=== PATIENT | female | born 1955 | race Caucasian/White ===

== ENCOUNTER 2018-08-21 11:51 | Emergency (ER) | payer BC ==
--- NOTE | 2018-08-21 12:12 | ER Document Report ---
ED General <LOLITA BEARD - Last Filed: 08/21/18 14:37> - General Mode of Arrival: Ambulatory Information source: Patient TRAVEL OUTSIDE OF THE [place] IN LAST 30 DAYS: No <LAKESHIA POWELL - Last Filed: 08/21/18 16:35> - General Chief Complaint: Leg Pain Stated Complaint: LEFT LEG PAIN Time Seen by Provider: 08/21/18 12:03 Notes: Patient is a 62 year old female presenting to the emergency department complaining of left leg swelling and pain onset yesterday. Patient had a left total knee replacement on August 15, 2018 and states she was doing well after the surgery. She states she was able to walk and put weight on her knee until yesterday. She states yesterday she began to have increased swelling below the knee and it became very painful to walk and tender to the touch. She states she has some above the knee swelling but this has been the same since the surgery. She also reports the swelling to her knee decreasing one inch since the surgery. Dr. Figueroa at [facility] performed the patient's total knee replacement. Patient currently takes 2 baby aspirin daily. (LAKESHIA POWELL) - Related Data Allergies/Adverse Reactions: oxycodone Adverse Reaction (Verified 08/21/18 11:52) Past Medical History - General Information source: Patient - Social History Smoking Status: Never Smoker Cigarette use (# per day): No Chew tobacco use (# tins/day): No Smoking Education Provided: No Frequency of alcohol use: None Family History: Reviewed & Not Pertinent - Past Medical History Cardiac Medical History: Reports: Hx Hypercholesterolemia, Hx Hypertension Endocrine Medical History: Reports: Hx Diabetes Mellitus Type 2 <LAKESHIA POWELL - Last Filed: 08/21/18 16:35> Review of Systems - Review of Systems Constitutional: No symptoms reported EENT: No symptoms reported Cardiovascular: No symptoms reported Respiratory: No symptoms reported Gastrointestinal: No symptoms reported Genitourinary: No symptoms reported Female Genitourinary: No symptoms reported Musculoskeletal: See HPI, Leg swelling Skin: No symptoms reported Hematologic/Lymphatic: No symptoms reported Neurological/Psychological: No symptoms reported -: Yes All other systems reviewed and negative <LAKESHIA POWELL - Last Filed: 08/21/18 16:35> Physical Exam <LOLITA BEARD - Last Filed: 08/21/18 14:37> <LAKESHIA POWELL - Last Filed: 08/21/18 16:35> - Vital signs Vitals: Temp Pulse Resp BP Pulse Ox 98.3 F 95 24 H 112/45 L 98 08/21/18 11:56 08/21/18 11:56 08/21/18 11:56 08/21/18 11:56 08/21/18 11:56 - Notes Notes: GENERAL: Alert, interacts well. No acute distress. HEAD: Normocephalic, atraumatic. EYES: Pupils equal, round, and reactive to light. Extraocular movements intact. ENT: Oral mucosa moist, tongue midline. NECK: Full range of motion. Supple. Trachea midline. LUNGS: No respiratory distress. HEART: Regular rate and rhythm. No murmurs, gallops, or rubs. EXTREMITIES: Moves all 4 extremities spontaneously. Bandage over left knee, consistent with surgical history. Edema to the left lower extremity above and below the knee. Mid and upper calf tender to palpation, mild erythema but is not warm to touch, swollen. Mid calf firm. Popliteal fossa not firm, but tender. NEUROLOGICAL: Alert and oriented x3. Normal speech. PSYCH: Normal affect, normal mood. SKIN: Warm, dry, normal turgor. No rashes or lesions noted. (LAKESHIA POWELL) Course - Laboratory Result Diagrams: 08/21/18 12:39 08/21/18 12:39 <LOLITA BEARD - Last Filed: 08/21/18 14:37> - Laboratory Result Diagrams: 08/21/18 12:39 08/21/18 12:39 <LAKESHIA POWELL - Last Filed: 08/21/18 16:35> - Vital Signs Vital signs: Temp Pulse Resp BP Pulse Ox 98.5 F 91 15 122/56 L 99 08/21/18 14:53 08/21/18 14:53 08/21/18 14:53 08/21/18 14:53 08/21/18 14:53 - Laboratory Laboratory results interpreted by me: 08/21/18 08/21/18 12:39 12:39 Hct 35.6 L Glucose 127 H ALT 85 H Alkaline Phosphatase 146 H Discharge <LOLITA BEARD - Last Filed: 08/21/18 14:37> <LAKESHIA POWELL - Last Filed: 08/21/18 16:35> - Discharge Clinical Impression: Swelling of lower extremity Condition: Stable Disposition: HOME, SELF-CARE Additional Instructions: The venous Doppler study did not show evidence of blood clots today. Your white blood cell count was normal and did not suggest an infectious problem. The skin had a slight redness noted, but was not warm to touch. You should try to elevate the leg above the heart is much as possible. Follow-up with your primary care provider or your orthopedic surgeon in the next few days for recheck of the leg. RETURN TO THE EMERGENCY ROOM IF ANY NEW OR WORSENING SYMPTOMS. Referrals: MJ MONREAL FNP [Primary Care Provider] - Follow up in 3-5 days [employer] Attestation: 08/21/18 13:56 I personally performed the services described in the documentation, reviewed and edited the documentation which was dictated to the scribe in my presence, and it accurately records my words and actions. (LOLITA BEARD) Scribe Documentation - Scribe Written by Danuta:: Danuta Eric, 08/21/2018 12:23 acting as scribe for :: Trena <LAKESHIA POWELL - Last Filed: 08/21/18 16:35>
[2018-08-21 13:00] LABS: ABSOLUTE BASOPHILS # (AUTO) 0.1 10^3/uL (0.0-0.2); ABSOLUTE EOSINOPHILS # (AUTO) 0.1 10^3/uL (0.0-0.6); ABSOLUTE LYMPHOCYTES (AUTO) 1.7 10^3/uL (0.5-4.7); ABSOLUTE MONOCYTES (AUTO) 0.7 10^3/uL (0.1-1.4); ABSOLUTE NEUT (AUTO) 5.5 10^3/uL (1.7-8.2); BASOPHILS % (AUTO) 0.9 % (0-2); EOSINOPHILS % (AUTO) 1.8 % (0-6); HEMATOCRIT 35.6 % (36.0-47.0); HEMOGLOBIN 12.2 g/dL (12.0-15.5); LYMPHOCYTES % (AUTO) 20.9 % (13-45); MEAN CORPUSCULAR HEMOGLOBIN 31.3 pg (27.0-33.4); MEAN CORPUSCULAR HGB CONC 34.3 g/dL (32.0-36.0); MEAN CORPUSCULAR VOLUME 91 fl (80-97); PLATELET COUNT 399 10^3/uL (150-450); RED CELL DISTRIBUTION WIDTH 13.3 % (11.5-14.0); SEGMENTED NEUTROPHILS % (AUTO) 67.4 % (42-78); TOTAL CELLS COUNTED % (AUTO) 100 %; WHITE BLOOD COUNT 8.1 10^3/uL (4.0-10.5)
[2018-08-21 13:14] LABS: ALANINE AMINOTRANSFERASE 85 U/L (9-52); ALKALINE PHOSPHATASE 146 U/L (38-126); ANION GAP 15 (5-19); ASPARTATE AMINO TRANSFERASE 30 U/L (14-36); BILIRUBIN,DIRECT 0.2 mg/dL (0.0-0.4); BILIRUBIN,TOTAL 0.5 mg/dL (0.2-1.3); BLOOD UREA NITROGEN 15 mg/dL (7-20); CALCIUM 10.2 mg/dL (8.4-10.2); CARBON DIOXIDE 29 mmol/L (22-30); CHLORIDE 98 mmol/L (98-107); GLUCOSE 127 mg/dL (75-110); POTASSIUM 4.1 mmol/L (3.6-5.0); SODIUM 141.8 mmol/L (137-145); TOTAL PROTEIN 6.5 g/dL (6.3-8.2)
[2018-08-21 14:16] LABS: INTERNATIONAL RATION (INR) 0.84; PROTHROMBIN TIME 11.9 SEC (11.4-15.4)
[2018-08-21 14:17] LABS: PARTIAL THROMBOPLASTIN TIME 25.3 SEC (23.5-35.8)
[2018-08-21 14:55] VITALS: BP 122/56
--- NOTE | 2018-08-21 16:29 | XCELERA REPORT ---
[address] [facility] [id number] Lower Extremity Venous Evaluation Procedure: Color flow and duplex imaging of the veins of the left lower extremity as well as the right Common Femoral vein. Right Sided Venous Evaluation The right common femoral vein is fully compressible. Spontaneous and phasic flow is present in the right common femoral vein. Left Sided Venous Evaluation Normal vessel filling wall to wall, compression and augmentation as well as Colour flow down to the infrageniculate veins. Interpretation Summary No duplex evidence of DVT or obstruction in the left lower extremity nor in the right Common Femoral vein. Name: CATALINO WALKER Age: 62 yrs Gender: Female : 1955 Patient Status: Emergency Patient Location: ER Study Date: 08/21/2018 01:50 PM Reason For Study: Left leg postop swelling Ordering Physician: LOLITA BEARD Performed By: Treasure Joyner : LOLITA BEARD > Rinku Silver
== END 2018-08-21 14:55 | disposition home or self-care (01) ==
LOC: ER 11:51
DX: M79.89 Other specified soft tissue disorders (principal); Z96.652 Presence of left artificial knee joint; E11.9 Type 2 diabetes mellitus without complications; I10 Essential (primary) hypertension; Z79.82 Long term (current) use of aspirin
CPT/HCPCS: 36415; 80053; 85025; 85610; 85730; 93971; 99284